=== PATIENT | female | born 1945 | race Caucasian/White ===

== ENCOUNTER → 2017-08-25 | Outpatient (CLI) | payer OTHER ==
[~2017-08-25] MED LIST: CALC0.0013 EX; LEVO125T7 OR; METF-371 OR; MICO2CRE49 VA; PRAVASTATIN; RAMI5CAP40 OR; [UNRECOGNIZED DRUG - CODE] EX
[2017-08-25 08:44] LABS: Basophils # (auto) 0 uL; Basophils % (auto) 0.6 % (0.0-2.0); Eosinophils # (auto) 0.1 uL; Eosinophils % (auto) 1.5 % (0.0-7.0); Hematocrit 42.1 % (36.0-46.0); Hemoglobin 14.1 g/dL (12.2-16.2); Lymphocytes % (auto) 26.2 % (10.0-50.0); Mean Corpuscular Hemoglobin 32.8 pg (28.0-32.0); Mean Corpuscular Hgb Conc. 33.4 g/dL (32.0-36.0); Mean Corpuscular Volume 98.4 fL (80.0-100.0); Monocytes # (auto) 0.2 uL; Monocytes % (auto) 6.3 % (0.0-12.0); Neutrophils # (auto) 2.4 uL; Neutrophils % (auto) 65.4 % (37.0-80.0); Nucleated Red Blood Cells % 0.1 %; Platelet Count (auto) 228 10^3/uL (140-450); Red Blood Cells 4.28 10^6/uL (4.0-5.20); Red Cell Distribution Width 15.9 % (11.8-14.3); White Blood Cell 3.7 10^3/uL (4.4-10.8)
[2017-08-25 08:53] LABS: Urine Bacteria MANY /hpf (None Seen); Urine Blood Negative /uL (Negative); Urine Mucus FEW (None Seen); Urine Specific Gravity 1.025 (1.001-1.035); Urine WBC 26 /hpf (0 - 5)
[2017-08-25 09:32] LABS: Albumin 3.9 g/dL (3.4-5.0); BUN/Creatinine Ratio 22.7; Bilirubin, Total 0.6 mg/dL (0.2-1.0); Calcium 8.7 mg/dL (8.5-10.1); Total Protein 6.7 g/dL (6.4-8.2)
== END | disposition home or self-care (01) ==
LOC: LAB 07:44
PROVIDERS: ATTEND Family Medicine
DX: E11.49 Type 2 diabetes mellitus with other diabetic neurological complication (principal); E03.9 Hypothyroidism, unspecified
CPT/HCPCS: 36415; 80053; 80061; 81001; 82043; 82306; 83036; 84443; 85025

== ENCOUNTER → 2018-08-26 | Outpatient (CLI) | payer OTHER ==
[2018-08-26 11:45] LABS: Basophils # (auto) 0 uL; Basophils % (auto) 0.5 % (0.0-2.0); Eosinophils # (auto) 0.1 uL; Eosinophils % (auto) 3.2 % (0.0-7.0); Hemoglobin 13.2 g/dL (12.2-16.2); Lymphocytes # (auto) 1.1 uL; Lymphocytes % (auto) 24.2 % (10.0-50.0); Mean Corpuscular Hemoglobin 32.1 pg (28.0-32.0); Mean Corpuscular Volume 97.4 fL (80.0-100.0); Monocytes # (auto) 0.2 uL; Monocytes % (auto) 4.1 % (0.0-12.0); Nucleated Red Blood Cells % 0.1 %; Platelet Count (auto) 187 10^3/uL (140-450); Red Cell Distribution Width 15.2 % (11.8-14.3); White Blood Cell 4.5 10^3/uL (4.4-10.8)
[2018-08-26 11:53] LABS: Urine Bacteria FEW /hpf (None Seen); Urine Blood Negative /uL (Negative); Urine Specific Gravity 1.012 (1.001-1.035); Urine WBC 20 /hpf (0 - 5); Urine WBC Clumps PRESENT /hpf (None Seen)
[2018-08-26 12:12] LABS: Potassium 3.8 mmol/L (3.5-5.1)
[2018-08-26 12:24] LABS: Albumin 3.8 g/dL (3.4-5.0); BUN/Creatinine Ratio 25.8; Bilirubin, Total 0.6 mg/dL (0.2-1.0); Calcium 8.6 mg/dL (8.5-10.1); Total Protein 6.4 g/dL (6.4-8.2)
== END | disposition home or self-care (01) ==
LOC: LAB 10:16
PROVIDERS: ATTEND Nurse Practitioner
DX: E78.5 Hyperlipidemia, unspecified (principal); E11.9 Type 2 diabetes mellitus without complications; E03.9 Hypothyroidism, unspecified; I10 Essential (primary) hypertension; Z79.899 Other long term (current) drug therapy
CPT/HCPCS: 36415; 80053; 80061; 81001; 82043; 82306; 83036; 84443; 85025

== ENCOUNTER 2021-03-19 10:36 | Inpatient (IN) | payer OTHER ==
[~2021-03-19] VITALS: Ht 157.5 cm; Wt 92.1 kg
[2021-03-19 12:40] VITALS: BP 130/82
[2021-03-19] MEDS ORDERED: HYDROcodone-ACET 5/325MG TAB PO PRN (13:45)
[2021-03-19] MEDS ORDERED: DEXTROSE (50%) 50ML SYRG IV PRN (13:45)
[2021-03-19] MEDS ORDERED: MORPHINE SULFATE INJECTION 2 MG/ML SYRG IV PRN ×2 (13:45→14:15)
[2021-03-19] MEDS ORDERED: hydrALAZINE HCL 20 MG/ML VL IV PRN (13:45)
[2021-03-19] MEDS ORDERED: ALBUTEROL SULF HFA 90MCG INH 200DOSE IN SCH (14:00)
[2021-03-19] MEDS ORDERED: NITROGLYCERIN 0.4 MG SL TAB SL PRN (14:15)
[2021-03-19] MEDS: ACCU-CHEK COMFORT CURVE STRIP VI SCH (17:24)
[2021-03-19] MEDS: InsuLIN REG 1unit/0.01ml Soln (100units/ml) SC SCH (17:28)
[2021-03-19 17:52] LABS: Basophils # (auto) 0.1 10 ^3/uL (0-0.2); Basophils % (auto) 1.5 % (0.0-2.0); Eosinophils # (auto) 0 10 ^3/uL (0-0.8); Hematocrit 41.2 % (36.0-46.0); Hemoglobin 13.8 g/dL (12.2-16.2); Lymphocytes # (auto) 0.5 10 ^3/uL (0.4-5.4); Lymphocytes % (auto) 9.4 % (10.0-50.0); Mean Corpuscular Hemoglobin 31.4 pg (28.0-32.0); Mean Corpuscular Hgb Conc. 33.4 g/dL (32.0-36.0); Mean Corpuscular Volume 93.8 fL (80.0-100.0); Monocytes # (auto) 0.2 10 ^3/uL (0-1.3); Monocytes % (auto) 3.5 % (0.0-12.0); Neutrophils # (auto) 4.8 10 ^3/uL (1.6-8.6); Neutrophils % (auto) 85.6 % (37.0-80.0); Nucleated Red Blood Cells % 0.1 %; Red Blood Cells 4.39 10^6/uL (4.0-5.20); White Blood Cell 5.6 10^3/uL (4.4-10.8)
[2021-03-19 17:55] LABS: Albumin 2.3 g/dL (3.4-5.0); Calcium 8.3 mg/dL (8.5-10.1); Potassium 4.4 mmol/L (3.5-5.1)
[2021-03-19 17:59] LABS: BUN/Creatinine Ratio 33.9; Bilirubin, Total 0.5 mg/dL (0.2-1.0); Total Protein 5.5 g/dL (6.4-8.2)
[2021-03-19] MEDS ORDERED: diphenhdrAMINE HCL 12.5 MG/5 ML UD PO ONE (18:00)
[2021-03-19 20:02] VITALS: BP 130/82
[2021-03-19 20:38] VITALS: BP 117/61
[2021-03-19] MEDS ORDERED: InsuLIN REG 1unit/0.01ml Soln (100units/ml) SC SCH (22:00)
[2021-03-20] MEDS: traZODone HCL 50 MG TAB PO SCH ×2 (00:09→21:47)
[2021-03-20] MEDS: ENOXAPARIN SOD 80 MG/0.8ML SYRINGE SC SCH ×3 (00:09→21:47)
[2021-03-20] MEDS: ACCU-CHEK COMFORT CURVE STRIP VI SCH ×5 (00:09→21:48)
[2021-03-20] MEDS: INSULIN LANTUS (GLARGINE) 1 /0.01ml (100units/ml) SC SCH ×2 (00:11→22:36)
[2021-03-20 04:16] VITALS: BP 123/77
[2021-03-20] MEDS: InsuLIN REG 1unit/0.01ml Soln (100units/ml) SC SCH ×2 (06:41→12:26)
[2021-03-20 07:55] LABS: Basophils # (auto) 0 10 ^3/uL (0-0.2); Basophils % (auto) 0.5 % (0.0-2.0); Eosinophils # (auto) 0.1 10 ^3/uL (0-0.8); Eosinophils % (auto) 0.7 % (0.0-7.0); Hematocrit 43.4 % (36.0-46.0); Hemoglobin 14.7 g/dL (12.2-16.2); Lymphocytes # (auto) 1.3 10 ^3/uL (0.4-5.4); Lymphocytes % (auto) 18.5 % (10.0-50.0); Mean Corpuscular Hemoglobin 32.5 pg (28.0-32.0); Mean Corpuscular Hgb Conc. 33.9 g/dL (32.0-36.0); Mean Corpuscular Volume 95.6 fL (80.0-100.0); Monocytes # (auto) 0.5 10 ^3/uL (0-1.3); Monocytes % (auto) 6.7 % (0.0-12.0); Neutrophils # (auto) 5.2 10 ^3/uL (1.6-8.6); Neutrophils % (auto) 73.6 % (37.0-80.0); Nucleated Red Blood Cells % 0.2 %; Red Blood Cells 4.53 10^6/uL (4.0-5.20); Red Cell Distribution Width 15.2 % (11.8-14.3)
[2021-03-20 08:01] LABS: Albumin 2.5 g/dL (3.4-5.0); Calcium 8.5 mg/dL (8.5-10.1)
[2021-03-20 08:10] LABS: BUN/Creatinine Ratio 30.8; Bilirubin, Total 0.6 mg/dL (0.2-1.0); Total Protein 5.6 g/dL (6.4-8.2)
[2021-03-20 08:40] VITALS: BP 112/70
[2021-03-20] MEDS: PANTOPRAZOLE 40 MG/10 ML VIAL INJ IV SCH (10:30)
[2021-03-20] MEDS: CHOLECALCIFEROL (VITD3) 1,000UNIT=25mCg TAB PO SCH (10:31)
[2021-03-20] MEDS: ASCORBIC ACID 500 MG TAB PO SCH (10:31)
[2021-03-20] MEDS: DexAMETHasone 4 MG TAB PO SCH (10:31)
[2021-03-20 13:01] VITALS: BP 91/54
[2021-03-20 17:24] VITALS: BP 122/71
[2021-03-20] MEDS ORDERED: DEXTROSE (50%) 50ML SYRG IV PRN (17:30)
[2021-03-20] MEDS: INSULIN LISPRO (HUMAN) 100 UNITS/ML ML SC SCH ×2 (17:54→22:36)
[2021-03-20 21:18] VITALS: BP 116/69
[2021-03-20] MEDS ORDERED: InsuLIN REG 1unit/0.01ml Soln (100units/ml) SC SCH (22:00)
[2021-03-21 04:42] VITALS: BP 124/70
[2021-03-21] MEDS: ACCU-CHEK COMFORT CURVE STRIP VI SCH ×4 (06:48→22:42)
[2021-03-21] MEDS: INSULIN LISPRO (HUMAN) 100 UNITS/ML ML SC SCH ×4 (06:49→22:47)
[2021-03-21 07:33] LABS: Basophils # (auto) 0 10 ^3/uL (0-0.2); Basophils % (auto) 0.8 % (0.0-2.0); Eosinophils # (auto) 0.1 10 ^3/uL (0-0.8); Eosinophils % (auto) 1.5 % (0.0-7.0); Hematocrit 42.4 % (36.0-46.0); Hemoglobin 14.3 g/dL (12.2-16.2); Lymphocytes % (auto) 16.3 % (10.0-50.0); Mean Corpuscular Hemoglobin 31.9 pg (28.0-32.0); Mean Corpuscular Hgb Conc. 33.7 g/dL (32.0-36.0); Mean Corpuscular Volume 94.7 fL (80.0-100.0); Monocytes # (auto) 0.4 10 ^3/uL (0-1.3); Monocytes % (auto) 6.2 % (0.0-12.0); Neutrophils # (auto) 4.8 10 ^3/uL (1.6-8.6); Neutrophils % (auto) 75.2 % (37.0-80.0); Nucleated Red Blood Cells % 0.5 %; Red Blood Cells 4.48 10^6/uL (4.0-5.20); Red Cell Distribution Width 15.3 % (11.8-14.3); White Blood Cell 6.4 10^3/uL (4.4-10.8)
[2021-03-21] MEDS: ALBUTEROL SULF HFA 90MCG INH 200DOSE IN PRN ×2 (07:40→23:03)
[2021-03-21 07:55] LABS: Potassium 4.3 mmol/L (3.5-5.1)
[2021-03-21 08:04] LABS: Albumin 2.4 g/dL (3.4-5.0); BUN/Creatinine Ratio 33.3; Bilirubin, Total 0.6 mg/dL (0.2-1.0); Calcium 8.7 mg/dL (8.5-10.1); Total Protein 5.4 g/dL (6.4-8.2)
[2021-03-21 08:15] VITALS: BP 96/61
[2021-03-21 09:00] VITALS: BP 96/61
[2021-03-21] MEDS: PANTOPRAZOLE 40 MG/10 ML VIAL INJ IV SCH (10:11)
[2021-03-21] MEDS: ASCORBIC ACID 500 MG TAB PO SCH (10:11)
[2021-03-21] MEDS: CHOLECALCIFEROL (VITD3) 1,000UNIT=25mCg TAB PO SCH (10:11)
[2021-03-21] MEDS: DexAMETHasone 4 MG TAB PO SCH (10:11)
[2021-03-21] MEDS: ENOXAPARIN SOD 80 MG/0.8ML SYRINGE SC SCH ×2 (10:11→22:59)
[2021-03-21 13:00] VITALS: BP 105/67
[2021-03-21 16:32] VITALS: BP 111/76
[2021-03-21] MEDS: ONDANSETRON HCL 4 MG/2 ML VIAL IV PRN (19:55)
[2021-03-21 22:05] VITALS: BP 111/67
[2021-03-21] MEDS: INSULIN LANTUS (GLARGINE) 1 /0.01ml (100units/ml) SC SCH (22:47)
[2021-03-21] MEDS: traZODone HCL 50 MG TAB PO SCH (22:59)
[2021-03-22] VITALS (7 sets, daily range): BP systolic 94–116; BP diastolic 59–76
[2021-03-22] MEDS: ACCU-CHEK COMFORT CURVE STRIP VI SCH ×4 (06:12→21:37)
[2021-03-22] MEDS: INSULIN LISPRO (HUMAN) 100 UNITS/ML ML SC SCH ×4 (06:14→21:36)
[2021-03-22 07:04] LABS: Potassium 4.2 mmol/L (3.5-5.1)
[2021-03-22 07:10] LABS: Hematocrit 38.6 % (36.0-46.0); Hemoglobin 12.9 g/dL (12.2-16.2); Mean Corpuscular Hemoglobin 31.6 pg (28.0-32.0); Mean Corpuscular Hgb Conc. 33.4 g/dL (32.0-36.0); Mean Corpuscular Volume 94.7 fL (80.0-100.0); Red Blood Cells 4.07 10^6/uL (4.0-5.20); Red Cell Distribution Width 15.3 % (11.8-14.3); White Blood Cell 6.3 10^3/uL (4.4-10.8)
[2021-03-22 07:26] LABS: Basophils % (manual) 0 (0.0-2.0); Blast Cells 0; Eosinophils % (manual) 0 (0-7); Metamyelocytes % 0; Myelocytes % 0; Promyelocytes % 0; Reactive Lymphocytes 0
[2021-03-22 07:31] LABS: Albumin 2.2 g/dL (3.4-5.0); BUN/Creatinine Ratio 36.6; Bilirubin, Total 0.4 mg/dL (0.2-1.0); Calcium 8.4 mg/dL (8.5-10.1); Total Protein 5.5 g/dL (6.4-8.2)
[2021-03-22 08:46] LABS: Band Neutrophils % (manual) 2; Lymphocytes % (manual) 15 (10.0-50.0); Monocytes % (manual) 4 (0-12)
[2021-03-22] MEDS: CHOLECALCIFEROL (VITD3) 1,000UNIT=25mCg TAB PO SCH (09:36)
[2021-03-22] MEDS: ASCORBIC ACID 500 MG TAB PO SCH (09:36)
[2021-03-22] MEDS: ENOXAPARIN SOD 80 MG/0.8ML SYRINGE SC SCH ×2 (09:36→21:36)
[2021-03-22] MEDS: ALPRAZolam 0.5 MG TAB PO PRN (09:37)
[2021-03-22] MEDS ORDERED: DexAMETHasone 4 MG TAB PO SCH (10:00)
[2021-03-22] MEDS: ALBUTEROL SULF HFA 90MCG INH 200DOSE IN PRN ×2 (10:09→21:39)
[2021-03-22] MEDS: INSULIN LANTUS (GLARGINE) 1 /0.01ml (100units/ml) SC SCH (21:30)
[2021-03-22] MEDS: traZODone HCL 50 MG TAB PO SCH (21:34)
[2021-03-23 05:00] VITALS: BP 110/75
[2021-03-23] MEDS: INSULIN LISPRO (HUMAN) 100 UNITS/ML ML SC SCH ×4 (06:23→21:54)
[2021-03-23] MEDS: ACCU-CHEK COMFORT CURVE STRIP VI SCH ×4 (06:26→21:55)
[2021-03-23 07:32] LABS: Basophils # (auto) 0 10 ^3/uL (0-0.2); Basophils % (auto) 0.7 % (0.0-2.0); Eosinophils # (auto) 0 10 ^3/uL (0-0.8); Eosinophils % (auto) 0.4 % (0.0-7.0); Hematocrit 39.6 % (36.0-46.0); Hemoglobin 13.5 g/dL (12.2-16.2); Lymphocytes # (auto) 1.5 10 ^3/uL (0.4-5.4); Lymphocytes % (auto) 24.9 % (10.0-50.0); Mean Corpuscular Hemoglobin 32.5 pg (28.0-32.0); Mean Corpuscular Volume 95.8 fL (80.0-100.0); Monocytes # (auto) 0.4 10 ^3/uL (0-1.3); Monocytes % (auto) 6.2 % (0.0-12.0); Neutrophils % (auto) 67.8 % (37.0-80.0); Nucleated Red Blood Cells % 0.1 %; Red Blood Cells 4.14 10^6/uL (4.0-5.20); Red Cell Distribution Width 15.5 % (11.8-14.3); White Blood Cell 5.9 10^3/uL (4.4-10.8)
[2021-03-23 07:46] LABS: Potassium 4.1 mmol/L (3.5-5.1)
[2021-03-23 07:53] LABS: Albumin 2.2 g/dL (3.4-5.0); BUN/Creatinine Ratio 35.2; Bilirubin, Total 0.4 mg/dL (0.2-1.0); Calcium 8.2 mg/dL (8.5-10.1)
[2021-03-23 08:15] VITALS: BP 109/58
[2021-03-23 09:00] VITALS: BP 116/71
[2021-03-23] MEDS: ASCORBIC ACID 500 MG TAB PO SCH (09:53)
[2021-03-23] MEDS: DexAMETHasone 4 MG TAB PO SCH (09:53)
[2021-03-23] MEDS: ENOXAPARIN SOD 80 MG/0.8ML SYRINGE SC SCH ×2 (09:54→21:53)
[2021-03-23] MEDS: CHOLECALCIFEROL (VITD3) 1,000UNIT=25mCg TAB PO SCH (09:54)
[2021-03-23 13:00] VITALS: BP 109/59
[2021-03-23] MEDS: ALPRAZolam 0.5 MG TAB PO PRN (13:02)
[2021-03-23] MEDS: ALBUTEROL SULF HFA 90MCG INH 200DOSE IN PRN (15:08)
[2021-03-23 17:00] VITALS: BP 93/67
[2021-03-23] MEDS: traZODone HCL 50 MG TAB PO SCH (21:53)
[2021-03-23] MEDS: INSULIN LANTUS (GLARGINE) 1 /0.01ml (100units/ml) SC SCH (21:55)
[2021-03-23 22:00] VITALS: BP 92/67
[2021-03-24] MEDS: ALBUTEROL SULF HFA 90MCG INH 200DOSE IN PRN ×3 (00:19→19:55)
[2021-03-24 05:00] VITALS: BP 111/71
[2021-03-24] MEDS: INSULIN LISPRO (HUMAN) 100 UNITS/ML ML SC SCH ×4 (06:44→22:24)
[2021-03-24] MEDS: ACCU-CHEK COMFORT CURVE STRIP VI SCH ×4 (06:44→21:53)
[2021-03-24 07:17] LABS: Potassium 3.9 mmol/L (3.5-5.1)
[2021-03-24 07:28] LABS: Albumin 2.2 g/dL (3.4-5.0); BUN/Creatinine Ratio 43.1; Bilirubin, Total 0.5 mg/dL (0.2-1.0); Calcium 8.4 mg/dL (8.5-10.1); Total Protein 5.1 g/dL (6.4-8.2)
[2021-03-24 07:32] LABS: Basophils # (auto) 0 10 ^3/uL (0-0.2); Basophils % (auto) 0.2 % (0.0-2.0); Eosinophils # (auto) 0 10 ^3/uL (0-0.8); Eosinophils % (auto) 0.9 % (0.0-7.0); Hematocrit 39.8 % (36.0-46.0); Hemoglobin 13.3 g/dL (12.2-16.2); Lymphocytes # (auto) 1.5 10 ^3/uL (0.4-5.4); Lymphocytes % (auto) 26.8 % (10.0-50.0); Mean Corpuscular Hemoglobin 32.1 pg (28.0-32.0); Mean Corpuscular Hgb Conc. 33.5 g/dL (32.0-36.0); Mean Corpuscular Volume 95.8 fL (80.0-100.0); Monocytes # (auto) 0.3 10 ^3/uL (0-1.3); Monocytes % (auto) 5.5 % (0.0-12.0); Neutrophils # (auto) 3.7 10 ^3/uL (1.6-8.6); Neutrophils % (auto) 66.6 % (37.0-80.0); Nucleated Red Blood Cells % 0.1 %; Red Blood Cells 4.15 10^6/uL (4.0-5.20); Red Cell Distribution Width 15.7 % (11.8-14.3); White Blood Cell 5.6 10^3/uL (4.4-10.8)
[2021-03-24 08:15] VITALS: BP 101/66
[2021-03-24] MEDS: CHOLECALCIFEROL (VITD3) 1,000UNIT=25mCg TAB PO SCH (09:51)
[2021-03-24] MEDS: ENOXAPARIN SOD 80 MG/0.8ML SYRINGE SC SCH ×2 (09:51→21:53)
[2021-03-24] MEDS: ASCORBIC ACID 500 MG TAB PO SCH (09:51)
[2021-03-24] MEDS: ONDANSETRON HCL 4 MG/2 ML VIAL IV PRN (09:51)
[2021-03-24] MEDS: DexAMETHasone 4 MG TAB PO SCH (09:51)
[2021-03-24 10:18] VITALS: BP 101/66
[2021-03-24] MEDS: DOCUSATE SOD 100 MG CAP PO PRN (11:18)
[2021-03-24 13:12] VITALS: BP 97/63
[2021-03-24 16:48] VITALS: BP 121/68
[2021-03-24] MEDS: ACETAMINOPHEN 500 MG TAB PO PRN (17:22)
[2021-03-24] MEDS: traZODone HCL 50 MG TAB PO SCH (21:53)
[2021-03-24 22:00] VITALS: BP 106/67
[2021-03-24] MEDS: INSULIN LANTUS (GLARGINE) 1 /0.01ml (100units/ml) SC SCH (22:25)
[2021-03-25 05:00] VITALS: BP 125/76
[2021-03-25] MEDS: ALBUTEROL SULF HFA 90MCG INH 200DOSE IN PRN ×2 (06:11→20:57)
[2021-03-25] MEDS: ACCU-CHEK COMFORT CURVE STRIP VI SCH ×4 (06:39→21:51)
[2021-03-25] MEDS: INSULIN LISPRO (HUMAN) 100 UNITS/ML ML SC SCH ×4 (06:40→21:51)
[2021-03-25 07:54] LABS: Basophils # (auto) 0 10 ^3/uL (0-0.2); Basophils % (auto) 0.2 % (0.0-2.0); Eosinophils # (auto) 0.1 10 ^3/uL (0-0.8); Eosinophils % (auto) 0.9 % (0.0-7.0); Hematocrit 39.6 % (36.0-46.0); Hemoglobin 13.4 g/dL (12.2-16.2); Lymphocytes # (auto) 1.6 10 ^3/uL (0.4-5.4); Mean Corpuscular Hemoglobin 32.4 pg (28.0-32.0); Mean Corpuscular Hgb Conc. 33.9 g/dL (32.0-36.0); Mean Corpuscular Volume 95.6 fL (80.0-100.0); Monocytes # (auto) 0.4 10 ^3/uL (0-1.3); Monocytes % (auto) 6.2 % (0.0-12.0); Neutrophils # (auto) 4.4 10 ^3/uL (1.6-8.6); Neutrophils % (auto) 67.7 % (37.0-80.0); Nucleated Red Blood Cells % 0.1 %; Red Blood Cells 4.14 10^6/uL (4.0-5.20); Red Cell Distribution Width 15.9 % (11.8-14.3); White Blood Cell 6.5 10^3/uL (4.4-10.8)
[2021-03-25 07:55] LABS: Potassium 4.1 mmol/L (3.5-5.1)
[2021-03-25 08:09] LABS: Albumin 2.3 g/dL (3.4-5.0); BUN/Creatinine Ratio 37.7; Bilirubin, Total 0.6 mg/dL (0.2-1.0); Calcium 8.4 mg/dL (8.5-10.1); Total Protein 5.3 g/dL (6.4-8.2)
[2021-03-25 08:15] VITALS: BP 108/48
[2021-03-25 09:00] VITALS: BP 108/48
[2021-03-25] MEDS: ASCORBIC ACID 500 MG TAB PO SCH (09:55)
[2021-03-25] MEDS: CHOLECALCIFEROL (VITD3) 1,000UNIT=25mCg TAB PO SCH (09:56)
[2021-03-25] MEDS: ENOXAPARIN SOD 80 MG/0.8ML SYRINGE SC SCH ×2 (09:56→21:55)
[2021-03-25] MEDS: DOCUSATE SOD 100 MG CAP PO PRN (10:06)
[2021-03-25 12:57] VITALS: BP 109/60
[2021-03-25 16:59] VITALS: BP 110/64
[2021-03-25] MEDS: traZODone HCL 50 MG TAB PO SCH (21:55)
[2021-03-25] MEDS: INSULIN LANTUS (GLARGINE) 1 /0.01ml (100units/ml) SC SCH (21:56)
[2021-03-25 22:00] VITALS: BP 109/68
[2021-03-26 01:46] VITALS: BP 109/68
[2021-03-26 05:00] VITALS: BP 107/57
[2021-03-26] MEDS: ACCU-CHEK COMFORT CURVE STRIP VI SCH ×4 (06:12→21:01)
[2021-03-26] MEDS: INSULIN LISPRO (HUMAN) 100 UNITS/ML ML SC SCH ×4 (06:13→21:01)
[2021-03-26] MEDS: ALBUTEROL SULF HFA 90MCG INH 200DOSE IN PRN (07:17)
[2021-03-26] MEDS: ASCORBIC ACID 500 MG TAB PO SCH (08:11)
[2021-03-26] MEDS: CHOLECALCIFEROL (VITD3) 1,000UNIT=25mCg TAB PO SCH (08:11)
[2021-03-26] MEDS: ENOXAPARIN SOD 80 MG/0.8ML SYRINGE SC SCH ×2 (08:12→20:50)
[2021-03-26 09:00] VITALS: BP 122/68
[2021-03-26 13:00] VITALS: BP 137/80
[2021-03-26 17:00] VITALS: BP 128/84
[2021-03-26] MEDS: traZODone HCL 50 MG TAB PO SCH (20:50)
[2021-03-26] MEDS: DOCUSATE SOD 100 MG CAP PO PRN (20:50)
[2021-03-26] MEDS: ACETAMINOPHEN 500 MG TAB PO PRN (20:51)
[2021-03-26] MEDS: INSULIN LANTUS (GLARGINE) 1 /0.01ml (100units/ml) SC SCH (21:05)
[2021-03-26 21:28] VITALS: BP 142/86
[2021-03-27 05:30] VITALS: BP 145/81
[2021-03-27] MEDS: INSULIN LISPRO (HUMAN) 100 UNITS/ML ML SC SCH ×4 (06:18→21:41)
[2021-03-27] MEDS: ACCU-CHEK COMFORT CURVE STRIP VI SCH ×4 (06:18→21:40)
[2021-03-27 09:00] VITALS: BP 115/68
[2021-03-27] MEDS: CHOLECALCIFEROL (VITD3) 1,000UNIT=25mCg TAB PO SCH (12:08)
[2021-03-27] MEDS: ENOXAPARIN SOD 80 MG/0.8ML SYRINGE SC SCH ×2 (12:08→21:40)
[2021-03-27] MEDS: ASCORBIC ACID 500 MG TAB PO SCH (12:09)
[2021-03-27 12:40] VITALS: BP 145/81
[2021-03-27 13:00] VITALS: BP 121/74
[2021-03-27 17:00] VITALS: BP 114/70
[2021-03-27] MEDS: traZODone HCL 50 MG TAB PO SCH (21:39)
[2021-03-27] MEDS: ACETAMINOPHEN 500 MG TAB PO PRN (21:40)
[2021-03-27] MEDS: INSULIN LANTUS (GLARGINE) 1 /0.01ml (100units/ml) SC SCH (21:41)
[2021-03-27] MEDS: ONDANSETRON HCL 4 MG/2 ML VIAL IV PRN (22:01)
[2021-03-27 23:12] VITALS: BP 109/68
[2021-03-28 05:16] VITALS: BP 100/60
[2021-03-28] MEDS: InsuLIN REG 1unit/0.01ml Soln (100units/ml) SC SCH ×4 (07:00→23:07)
[2021-03-28] MEDS: ALBUTEROL SULF HFA 90MCG INH 200DOSE IN PRN ×2 (08:05→22:08)
[2021-03-28] MEDS: ACCU-CHEK COMFORT CURVE STRIP VI SCH ×4 (08:27→23:00)
[2021-03-28] MEDS: ACETAMINOPHEN 500 MG TAB PO PRN (08:28)
[2021-03-28] MEDS: ASCORBIC ACID 500 MG TAB PO SCH (08:28)
[2021-03-28] MEDS: ENOXAPARIN SOD 80 MG/0.8ML SYRINGE SC SCH (08:28)
[2021-03-28] MEDS: CHOLECALCIFEROL (VITD3) 1,000UNIT=25mCg TAB PO SCH (08:28)
[2021-03-28] MEDS: ONDANSETRON HCL 4 MG/2 ML VIAL IV PRN (08:29)
[2021-03-28 09:00] VITALS: BP 129/98
[2021-03-28] MEDS ORDERED: REMDESIVIR PER PHARMACY 0 ML IV SCH (11:30)
[2021-03-28 13:00] VITALS: BP 111/69
[2021-03-28] MEDS ORDERED: REMDESIVIR 200 MG in NS 210ml LOADING DOSE ADULT IV ONE (15:00)
[2021-03-28 15:28] LABS: Albumin 2.3 g/dL (3.4-5.0); Calcium 8.3 mg/dL (8.5-10.1); Potassium 3.6 mmol/L (3.5-5.1)
[2021-03-28 15:35] LABS: BUN/Creatinine Ratio 21.7; Bilirubin, Total 0.4 mg/dL (0.2-1.0); Total Protein 5.4 g/dL (6.4-8.2)
[2021-03-28 17:00] VITALS: BP 114/75
[2021-03-28 22:00] VITALS: BP 119/69
[2021-03-28] MEDS: traZODone HCL 50 MG TAB PO SCH (22:59)
[2021-03-28] MEDS: APIXABAN 5 MG TAB PO SCH (22:59)
[2021-03-29 05:00] VITALS: BP 117/95
[2021-03-29] MEDS: ACCU-CHEK COMFORT CURVE STRIP VI SCH ×4 (06:41→21:47)
[2021-03-29] MEDS: InsuLIN REG 1unit/0.01ml Soln (100units/ml) SC SCH ×4 (06:41→22:02)
[2021-03-29 06:46] LABS: Basophils # (auto) 0.1 10 ^3/uL (0-0.2); Basophils % (auto) 0.9 % (0.0-2.0); Eosinophils # (auto) 0.1 10 ^3/uL (0-0.8); Eosinophils % (auto) 1.5 % (0.0-7.0); Hematocrit 37.8 % (36.0-46.0); Hemoglobin 12.8 g/dL (12.2-16.2); Lymphocytes % (auto) 14.4 % (10.0-50.0); Mean Corpuscular Hemoglobin 32.5 pg (28.0-32.0); Mean Corpuscular Hgb Conc. 33.8 g/dL (32.0-36.0); Mean Corpuscular Volume 95.9 fL (80.0-100.0); Monocytes # (auto) 0.4 10 ^3/uL (0-1.3); Monocytes % (auto) 6.2 % (0.0-12.0); Neutrophils # (auto) 5.3 10 ^3/uL (1.6-8.6); Red Blood Cells 3.94 10^6/uL (4.0-5.20); White Blood Cell 6.9 10^3/uL (4.4-10.8)
[2021-03-29 07:05] LABS: Albumin 2.3 g/dL (3.4-5.0); Calcium 8.3 mg/dL (8.5-10.1); Potassium 3.6 mmol/L (3.5-5.1)
[2021-03-29 07:10] LABS: BUN/Creatinine Ratio 17.5; Bilirubin, Total 0.6 mg/dL (0.2-1.0); Total Protein 5.3 g/dL (6.4-8.2)
[2021-03-29 08:00] VITALS: BP 152/56
[2021-03-29 09:00] VITALS: BP 152/56
[2021-03-29] MEDS ORDERED: DexAMETHasone SOD PHOS 10MG/1ML VIAL INJ IV SCH (10:00)
[2021-03-29] MEDS: APIXABAN 5 MG TAB PO SCH ×2 (11:06→21:47)
[2021-03-29] MEDS: ACETAMINOPHEN 500 MG TAB PO PRN (11:06)
[2021-03-29] MEDS: CHOLECALCIFEROL (VITD3) 1,000UNIT=25mCg TAB PO SCH (11:07)
[2021-03-29] MEDS: ASCORBIC ACID 500 MG TAB PO SCH (11:07)
[2021-03-29 13:00] VITALS: BP 135/72
[2021-03-29] MEDS: ONDANSETRON HCL 4 MG/2 ML VIAL IV PRN (13:33)
[2021-03-29] MEDS ORDERED: REMDESIVIR 100mg 100 MG in SODIUM CHL 0.9% 230 ML IV SCH (15:00)
[2021-03-29 17:00] VITALS: BP 113/65
[2021-03-29] MEDS: ALBUTEROL SULF HFA 90MCG INH 200DOSE IN PRN (21:43)
[2021-03-29] MEDS: traZODone HCL 50 MG TAB PO SCH (21:47)
[2021-03-29 22:00] VITALS: BP 110/59
[2021-03-30 05:00] VITALS: BP 109/74
[2021-03-30] MEDS: InsuLIN REG 1unit/0.01ml Soln (100units/ml) SC SCH ×3 (06:25→17:00)
[2021-03-30] MEDS: ACCU-CHEK COMFORT CURVE STRIP VI SCH ×3 (06:25→17:36)
[2021-03-30] MEDS: ALBUTEROL SULF HFA 90MCG INH 200DOSE IN PRN ×2 (07:49→19:55)
[2021-03-30 09:00] VITALS: BP 109/63
[2021-03-30] MEDS: APIXABAN 5 MG TAB PO SCH (09:07)
[2021-03-30] MEDS: ONDANSETRON HCL 4 MG/2 ML VIAL IV PRN (09:07)
[2021-03-30] MEDS: CHOLECALCIFEROL (VITD3) 1,000UNIT=25mCg TAB PO SCH (09:07)
[2021-03-30] MEDS: ASCORBIC ACID 500 MG TAB PO SCH (09:07)
[2021-03-30 09:52] LABS: Albumin 2.3 g/dL (3.4-5.0); Calcium 8.2 mg/dL (8.5-10.1); Potassium 4.2 mmol/L (3.5-5.1)
[2021-03-30 09:56] LABS: Bilirubin, Total 0.6 mg/dL (0.2-1.0); Total Protein 5.5 g/dL (6.4-8.2)
[2021-03-30 13:00] VITALS: BP 112/65
[2021-03-30 15:53] VITALS: BP 112/65
[2021-03-30 17:00] VITALS: BP 115/59
[2021-03-30 21:26] VITALS: BP 118/64
== END 2021-03-30 21:54 | disposition hospice, home (50) | DRG 177 ==
LOC: EAST 12:45 → TELE-E-ADS 03-20 05:22 → TELE-EAST 03-22 07:42
PROVIDERS: ADMIT Internal Medicine; ATTEND Internal Medicine
PROC: XW033E5 Introduction of Remdesivir Anti-infective into Peripheral Vein, Percutaneous Approach, New Technology Group 5 (ICD-10-PCS; principal; 2021-03-28)
DX: U07.1 COVID-19 (principal); J96.00 Acute respiratory failure, unspecified whether with hypoxia or hypercapnia; J12.82 Pneumonia due to coronavirus disease 2019; G93.41 Metabolic encephalopathy; I82.402 Acute embolism and thrombosis of unspecified deep veins of left lower extremity; J98.11 Atelectasis; E11.40 Type 2 diabetes mellitus with diabetic neuropathy, unspecified; F03.90 Unspecified dementia, unspecified severity, without behavioral disturbance, psychotic disturbance, mood disturbance, and anxiety; Z88.1 Allergy status to other antibiotic agents; Z88.0 Allergy status to penicillin; Z88.2 Allergy status to sulfonamides; Z88.8 Allergy status to other drugs, medicaments and biological substances
CPT/HCPCS: 36415; 80053; 82962; 85007; 85025; 85027; 87081; 87426; 94640; 97110; 97116; 97163; 97530; C9113; G0378; J1815; J2405